=== PATIENT | male | born 1995 | race Caucasian/White ===

== ENCOUNTER 2025-04-03 12:19 | Emergency (ER) | payer SELFPAY ==
[2025-04-03 12:30] VITALS: BP 151/88; PULSE 114; RESP 17; TEMP 37.2; O2SAT 96; BMI 45.1
--- NOTE | 2025-04-03 12:36 | XR_ITS ---
PROCEDURE INFORMATION: Exam: XR Left Hand Exam date and time: 04/03/2025 12:54 PM Age: 29 years old Clinical indication: Numbness; Hand; Left; Additional info: Left hand pain / numbness x 2 weeks TECHNIQUE: Imaging protocol: Radiologic exam of the left hand. Views: 3 or more views. COMPARISON: No relevant prior studies available. FINDINGS: Bones/joints: There is no evidence of acute fracture.There is no evidence of malalignment or dislocation. Soft tissues: Normal. IMPRESSION: There is no evidence of acute fracture.There is no evidence of malalignment or dislocation.
[2025-04-03 12:38] VITALS: BP 151/88; PULSE 114; RESP 17; TEMP 37.2; O2SAT 96
--- NOTE | 2025-04-03 12:38 | ED_ITS ---
Discharge Plan Disposition Patient Disposition: Home, Self-Care Prescriptions Prescriptions: New naproxen 500 mg tablet 500 mg PO BID PRN (Reason: pain) 7 Days Qty: 14 0RF Referrals Follow up/Referrals: Farhad Johnson DO [Staff Physician, Family Practice] - See instructions Provider,Referral, [Primary Care Provider, Medical] - See instructions Activity Restrictions/Add. Instructions Additional Instructions/Restrictions: Today you were evaluated in the emergency department and had a Toradol injection. The x-ray was unremarkable for any acute findings. Please wear the brace each day until evaluated by PCP. Please call Dr. Johnson and establish care for primary care. Please return to the ED for any worsening of condition. Clinical Impressions Clinical Impression: Hand pain, left Stand Alone Forms Stand Alone Forms: Work/School Release Instructions Patient Instructions: Carpal Tunnel Syndrome Print Language Print Language: [place] Discharge ED Provider: Elizabeth Shelley General Adult HPI <Nancy Nguyen APRN - Last Filed: 04/03/25 15:23> General Chief complaint: PAIN Stated complaint: Sharp pains in L arm, hand is going numb / 2wks Time Seen by Provider: 04/03/25 12:26 Mode of Arrival: Ambulatory Source of Information: Patient Description of Symptoms (Recalled from ER Triage Doc. by RN): pt presents to the ED with sharp pain in his left arm. Pt states that he gets sharp pain in his left wrist that radiates up his forearm. Pt reports that when he has the sharp shooting pain his finger gets numb. No known injury. History of Present Illness HPI narrative: patient is a 29-year-old male with no significant PMHx who presents to the ED with left hand pain and numbness of the first, second, third, fourth digit x 2 to 3 weeks. 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 Related Data Previous Rx's ?Medication ?Instructions ?Recorded naproxen 500 mg tablet 500 mg PO BID PRN pain 7 day s #14 04/03/25 tabs Allergies Allergy/AdvReac Type Severity Reaction Status Date / Time No Known Allergies Allergy Verified 04/03/25 12:39 PFSH <Nancy Nguyen APRN - Last Filed: 04/03/25 15:23> PFS Disclaimer: The information contained in this section may have been updated after the patient was seen, as this information can be updated by other users. Social History (Updated 04/03/25 @ 15:23 by Nancy Nguyen APRN) Smoking Status: Current every day smoker alcohol intake: never current occupational status: employed Travel in the last 8 weeks?: None Have you lived/traveled outside [place] in past 30 days?: No Contact w/someone who lives/traveled outside US past 30 days?: No Exposure to someone with infectious disease in past 14 days?: No Do you have a fever (greater than 100.4 F or 38 C)?: No Have you tested positive for COVID-19?: No Exposed to someone with COVID-19 in past 14 days?: No Do you have a sore throat?: No Do you have a cough?: No Do you have any weakness?: No Do you have any diarrhea?: No Are you experiencing any unusual bleeding?: No Do you have any muscle aches/pain?: No Do you have any abdominal pain?: No Are you experiencing loss of taste or smell?: No <Nancy Nguyen APRN - Last Filed: 04/03/25 15:23> ROS Obtained: Yes Systems reviewed as appropriate & no additional complaints except as documented Physical Exam <Nancy Nguyen APRN - Last Filed: 04/03/25 15:23> General General appearance: alert and in no apparent distress Comment: obese Eye Eye exam: Present PERRL ENT ENT exam: Present normal exam Neck Neck exam: Present normal inspection and full ROM Chest Chest inspection: Present normal inspection Respiratory Respiratory exam: Absent respiratory distress Cardiovascular Cardiovascular exam: Present regular rate Extremities Exam Extremities exam: Present full ROM, tenderness (left wrist ), normal capillary refill and other (decreased sensation of left 1,2,3,4 digits); Absent edema, joint swelling or cyanosis Back Exam Back exam: Present full ROM Neurological Exam Neurological exam: Present alert, oriented X3 and normal gait Skin Skin exam: Present warm and dry Medical Decision Making <Nancy Nguyen APRN - Last Filed: 04/03/25 15:23> Medical Records Screening: Per USPSTF and CDC recommendations, given the prevalence of disease in our region, it is our hospital?s policy to screen for HIV and viral Hepatitis for all patients aged 18 and over and those with ongoing risk factors. Kiko Inquiry Pt receiving controlled substance: No Vital Signs: 04/03/25 12:30 04/03/25 12:38 04/03/25 13:33 Temperature 99.0 F 99.0 F 98.7 F Temperature Source Oral Oral Oral Pulse Rate 114 H 102 H Pulse Rate [Right] 114 H Respiratory Rate 17 17 16 Blood Pressure 151/88 H 136/79 Blood Pressure [Right Arm] 151/88 H Blood Pressure Mean [Right Arm] 109 Blood Pressure Source Automatic Cuff Automatic Cuff Blood Pressure Source [Right Arm] Automatic Cuff Blood Pressure Position Supine Supine Blood Pressure Position [Right Arm] Supine 02 Sat by Pulse Oximetry 96 96 Oxygen Delivery Method Room Air Room Air Room Air Orders (Tests/Meds): ED MEDICATIONS Discontinued Medications Generic Name Dose Route Start Last Admin Trade Name Freq PRN Reason Stop Dose Admin Ketorolac Tromethamine 30 mg 04/03/25 12:36 04/03/25 12:54 Ketorolac 30mg/Ml Vial IM 04/03/25 12:37 30 mg ONCE ONE Administration ORDERS Category Date Time Status Hand XR left minimum 3 views [XR hand LT min 3V] Stat Exams 04/03/25 12:36 Completed Medical Decision Narrative: In summary, patient is a 29-year-old male with no significant PMHx who presents to the ED with left hand pain and numbness of the first, second, third, fourth digit x 2 to 3 weeks. 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 He denies any obvious injury. States he has not had any medication prior to arrival. He has not established with PCP. Denies fever, chills, body aches, chest pain, shortness of breath, abdominal pain, nausea, vomiting. Upon initial exam, patient is obese. He has tenderness of his left wrist upon palpation, full range of motion present in left wrist and left hand. Neurovascular status intact. Decree sensation of the first, second, third, fourth digit cap refill normal. Discussed with patient we will proceed with IM injection of Toradol and x-ray of the hand. My informal interpretation of the x-ray is no acute findings. Discussed with patient this is most likely carpal tunnel syndrome, we provided a brace in the ED for patient to wear. I advised him he will need to establish with PCP, I referred him to Dr. Johnson. We discussed return precautions to the ED. Patient verbalized understanding and he was ambulatory in the ED <Elizabeth Shelley MD - Last Filed: 04/03/25 16:07> Vital Signs: 04/03/25 12:30 04/03/25 12:38 04/03/25 13:33 Temperature 99.0 F 99.0 F 98.7 F Temperature Source Oral Oral Oral Pulse Rate 114 H 102 H Pulse Rate [Right] 114 H Respiratory Rate 17 17 16 Blood Pressure 151/88 H 136/79 Blood Pressure [Right Arm] 151/88 H Blood Pressure Mean [Right Arm] 109 Blood Pressure Source Automatic Cuff Automatic Cuff Blood Pressure Source [Right Arm] Automatic Cuff Blood Pressure Position Supine Supine Blood Pressure Position [Right Arm] Supine 02 Sat by Pulse Oximetry 96 96 Oxygen Delivery Method Room Air Room Air Room Air Orders (Tests/Meds): ED MEDICATIONS Discontinued Medications Generic Name Dose Route Start Last Admin Trade Name Freq PRN Reason Stop Dose Admin Ketorolac Tromethamine 30 mg 04/03/25 12:36 04/03/25 12:54 Ketorolac 30mg/Ml Vial IM 04/03/25 12:37 30 mg ONCE ONE Administration ORDERS Category Date Time Status Hand XR left minimum 3 views [XR hand LT min 3V] Stat Exams 04/03/25 12:36 Completed Medical Decision Narrative: In summary, patient is a 29-year-old male with no significant PMHx who presents to the ED with left hand pain and numbness of the first, second, third, fourth digit x 2 to 3 weeks. 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 He denies any obvious injury. States he has not had any medication prior to arrival. He has not established with PCP. Denies fever, chills, body aches, chest pain, shortness of breath, abdominal pain, nausea, vomiting. Upon initial exam, patient is obese. He has tenderness of his left wrist upon palpation, full range of motion present in left wrist and left hand. Neurovascular status intact. Decree sensation of the first, second, third, fourth digit cap refill normal. Discussed with patient we will proceed with IM injection of Toradol and x-ray of the hand. My informal interpretation of the x-ray is no acute findings. Discussed with patient this is most likely carpal tunnel syndrome, we provided a brace in the ED for patient to wear. I advised him he will need to establish with PCP, I referred him to Dr. Johnson. We discussed return precautions to the ED. Patient verbalized understanding and he was ambulatory in the ED I was consulted by the JAMILA, and we discussed the complexity of problems being addressed. I approved the treatment and management plan for this patient's care in the emergency department, thus performing a substantial portion of the medical decision making. Elizabeth Shelley MD Critical Care <Nancy Nguyen, SALES REPRESENTATIVE CONSULTANT - Last Filed: 04/03/25 15:23> Critical Care Time Critical Care Time: No
[2025-04-03] MEDS: KETOROLAC 30MG/ML VIAL 30 MG IM (12:54)
--- OUTSIDE RECORDS SUMMARY | 2025-04-03 12:58 | XMS_ITS | Clinical Summary ---
Author Organization [facility] Address [address] [place] [address] Care Team Providers Care Oil Distributor Tender Name Role Phone Pcp, No Primary Care Provider Unavailabl e Allergies No known active allergies Medications benzonatate (TESSALON PERLES) 100 mg capsuleIndicatio ns:Viral upper respiratory tract infection Take 2 capsules by mouth 3 times daily as needed for cough for up to 3 days. 9 capsule 0 Active Additional Information Patient not taking.Reason: Other (specify in comments) (completed), Reported on 11/16/2021 Social History Tobacco Use Types Packs/Day Years Used Date Smoking Tobacco: Every Day Cigarettes Smokeless Tobacco: Current Tobacco Cessation:Ready to Q uit: No; Counseling Given: No Alcohol Use Standard Drinks/Week Comments Yes 0 (1 standard drink = 0.6 oz pur e alcohol) occasionally Sex and Gender Information Value Date Recorded Sex Assigned at Not on file Legal Sex Male 8:11 PM EDT Gender Identity Not on file Sexual Orientation Not on file Last Filed Vital Signs Vital Sign Reading Time Taken Comments Blood Pressure 137/70 11/16/2021 9:13 AM EST Pulse 79 11/16/2021 9:13 AM EST Temperature 37.1 C (98.7 F) 11/16/2021 6:58 AM EST Respiratory Rate 20 11/16/2021 9:13 AM EST Oxygen Saturation 94% 11/16/2021 9:13 AM EST Inhaled Oxygen Concentration - - Weight 142.9 kg (315 lb) 11/16/2021 6:58 AM EST Height 185.4 cm (6' 1 ) 11/16/2021 6:58 AM EST Body Mass Index 41.56 11/16/2021 6:58 AM EST Plan of Treatment Health Maintenance Due Date Last Done Comments HIV INFECTION SCREENING 2011 DTAP/TDAP/TD VACCINES (4 - T d or Tdap) 01/02/2021 01/02/2011, 01/01/2001, 05/04/1998 COVID-19 Vaccine (2023-2 5 season) 2024 INFLUENZA VACCINE (Season Ended) 2025 PNEUMOCOCCAL VACCINES: PEDS & AT RISK PTS (0-49 YRS) Aged Out No longer eligibl e based on patient's age to complete this topic Care Teams Oil Distributor Tender Relationship Specialty Start Date End Date Pcp, [id number] [id number] PCP - General 12/21/19
--- OUTSIDE RECORDS SUMMARY | 2025-04-03 12:58 | XMS_ITS | Referral Summary ---
Author Organization [facility] Address [address] [place] [address] Care Team Providers Care Certified Caregiver Name Role Phone Pcp, No Primary Care [...] 11/16/2021 6:58 AM EST Plan of Treatment Not on file Care Teams Certified Caregiver Relationship Specialty Start Date End Date Pcp, [id number] [id number] PCP - General 12/21/19
[2025-04-03 13:33] VITALS: BP 136/79; PULSE 102; RESP 16; TEMP 37.1; O2SAT 94
== END 2025-04-03 13:34 | disposition home or self-care (01) ==
PROVIDERS: Emergency Provider Student in an Organized Health Care Education/Training Program
DX: M79.642 Pain in left hand (principal); F17.210 Nicotine dependence, cigarettes, uncomplicated
CPT/HCPCS: 73130; 96372; 99283; J1885